=== PATIENT | male | born 1955 | race Caucasian/White ===

== ENCOUNTER 2019-06-27 07:14 | Emergency (ER) | payer BC, OTHER ==
--- OUTSIDE RECORDS SUMMARY | 2019-06-27 07:26 | XMS REPORT | Continuity of Care Document ---
:1955 External Reference #:[id number] Author Name Tiffanie Joiner O.D. Address [address] [place] [id number] Care Team Providers Name Role Phone Alex Bates M.D. - Endocrinology, Care Team Information Measurement Operator [phone] Diabetes & Metabolism Problems Active Problems Provider Date Type 2 diabetes mellitus Onset: Combined form of senile cataract Marlene Graham O.D. Onset: 07/01/2015 Tear film insufficiency Marlene Graham O.D. Onset: 07/01/2015 Myopia Marlene Graham O.D. Onset: 07/01/2015 Regular astigmatism Marlene Graham O.D. Onset: 07/01/2015 Presbyopia Marlene Graham O.D. Onset: 07/01/2015 Ocular hypertension Marlene Graham O.D. Onset: 07/01/2015 Open-angle glaucoma - borderline Tiffanie Joiner O.D. Onset: 12/21/2017 Open angle with borderline findings, high Tiffanie Joiner O.D. Onset: 2017 risk, bilateral Social History Type Date Description Comments Sex Unknown ETOH Use Occasionally consumes beer Tobacco Use Start: Unknown Patient has never smoked Recreational Drug Use Denies Drug Use Smoking Status Reviewed: 06/23/19 Patient has never smoked Allergies, Adverse Reactions, Alerts Description No Known Drug Allergies Medications Active Medications SIG Qnty Indications Ordering Provider Date Metformin HCL 2 Tablets 2 times Unknown 500mg per day Tablets Vitamin B-12 1 tablet every Unknown 500mcg other day Tablets Sub Aspirin 81 1 tablet 1 time Unknown 81mg Tablets per day DR Kamara Description No Information Available Vital Signs Description No Information Available Results Description No Information Available Procedures Description No Information Available Medical Devices Description No Information Available Encounters Description No Information Available Assessments Date Code Description Provider 06/23/2019 H40.023 Open angle with borderline findings, high Tiffanie Joiner O.D. risk, bilateral 06/23/2019 E11.9 Type 2 diabetes mellitus without Tiffanie Joiner O.D. complications Plan of Treatment 06/23/2019 - Tiffanie Joiner O.D.H40.023 Open angle with borderline findings, high risk, bilateralComments:Smoking can increase the risk of developing or worsening any eye related disease, as well as affect your overall health. If you are a smoker, we strongly recommend that you quit.If you are not a smoker, we strongly recommend that you do not start. Dr. Joiner is considering you a Glaucoma suspect. This means the eye pressure in your eyes are higher than average, your optic nerve appearance is suspicious, or you have strong risk factors; but you have not been diagnosed with Glaucoma. Follow up appointments are very important to keep.Follow up:6 MONTHS IOP CHECK/VF 24-2E11.9 Type 2 diabetes mellitus without complicationsComments:You have diabetes. I do not detect any changes in both of your retinas from diabetes at this time. Proper control of your diabetes is important for the health of your eyes. Changes in your eyes from diabetes can happen without symptoms, so it is important that you have your eyes examined. Functional Status Description No Information Available Mental Status Description No Information Available Referrals Description No Information Available
[2019-06-27 07:31] VITALS: BP 134/78
--- NOTE | 2019-06-27 08:24 | UC ---
Throat Pain/Nasal Severo HPI - HPI Summary HPI Summary: 63-year-old male comes in with a chief complaint of upper respiratory tract infection symptoms and left ear pain. He's had upper respiratory tract infection symptoms for about 4 days. He initially developed some right ear pain which then cleared and then the left ear started hurting and that's units hurting now. Did take some [id number] pain medicines which do help with the symptoms. Minimal sore throat no chest congestion. - History of Current Complaint Chief Complaint: UCEar Stated Complaint: LEFT EAR COMPLAINT Time Seen by Provider: 06/27/19 08:15 Pain Intensity: 1 - Allergies/Home Medications Allergies/Adverse Reactions: Allergies Allergy/AdvReac Type Severity Reaction Status Date / Time No Known Allergies Allergy Verified 06/27/19 07:27 Home Medications: Home Medications Acetaminophen [Tylenol Extra Strength] 1 tab PO ONCE 06/27/19 [History Confirmed 06/27/19] PMH/Surg Hx/FS Hx/Imm Hx Previously Healthy: Yes Endocrine History: Diabetes - Surgical History Surgical History: None - Family History Known Family History: Positive: Non-Contributory - Social History Alcohol Use: Occasionally Substance Use Type: None Smoking Status (MU): Never Smoked Tobacco Review of Systems All Other Systems Reviewed And Are Negative: Yes Constitutional: Positive: Other - see hpi Skin: Positive: Negative Eyes: Positive: Negative ENT: Positive: Sore Throat, Ear Ache, Nasal Discharge, Sinus Congestion Respiratory: Positive: Negative Cardiovascular: Positive: Negative Gastrointestinal: Positive: Negative Motor: Positive: Negative Neurovascular: Positive: Negative Musculoskeletal: Positive: Negative Neurological: Positive: Negative Psychological: Positive: Negative Is Patient Immunocompromised?: No Physical Exam Triage Information Reviewed: Yes Appearance: Well-Appearing, No Pain Distress, Well-Nourished Vital Signs: Initial Vital Signs Temp 97 F 06/27/19 07:29 Pulse 68 06/27/19 07:29 Resp 16 06/27/19 07:29 BP 134/78 06/27/19 07:29 Pulse Ox 100 06/27/19 07:29 Vital Signs Reviewed: Yes Eye Exam: Normal Eyes: Positive: Conjunctiva Clear ENT: Positive: Pharyngeal erythema, Nasal congestion, TM bulging - left, TM red - left Neck: Positive: Supple Respiratory: Positive: Lungs clear, Normal breath sounds, No respiratory distress Cardiovascular: Positive: RRR Musculoskeletal: Positive: Strength Intact, ROM Intact Neurological: Positive: Alert, Muscle Tone Normal Psychological: Positive: Age Appropriate Behavior Skin Exam: Normal Throat Pain/Nasal Course/Dx - Differential Dx/Diagnosis Provider Diagnosis: Left otitis media Discharge ED - Sign-Out/Discharge Documenting (check all that apply): Patient Departure All imaging exams completed and their final reports reviewed: No Studies - Discharge Plan Condition: Stable Disposition: HOME Prescriptions: Amoxicillin PO (*) [Amoxicillin 875 MG (*)] 875 mg PO BID #20 tab Patient Education Materials: Ear Infection (ED) Referrals: Alex Bates MD [Primary Care Provider] - Additional Instructions: FOLLOW UP WITH YOUR DOCTOR IF NOT COMPLETELY IMPROVED. GET REEVALUATED SOONER IF NOT IMPROVING OR WORSE OR ANY QUESTIONS OR CONCERNS. - Billing Disposition and Condition Condition: STABLE Disposition: Home
== END 2019-06-27 08:28 | disposition home or self-care (01) ==
LOC: UCCORT 07:14
DX: H66.92 Otitis media, unspecified, left ear (principal); J02.9 Acute pharyngitis, unspecified; J34.89 Other specified disorders of nose and nasal sinuses; E11.9 Type 2 diabetes mellitus without complications
CPT/HCPCS: 99212; G0463

== ENCOUNTER 2019-07-09 13:03 | Emergency (ER) | payer BC, OTHER ==
[2019-07-09 13:27] VITALS: BP 133/83
--- NOTE | 2019-07-09 13:49 | UC ---
Ear Complaint HPI - HPI Summary HPI Summary: 63-year-old male comes with a chief complaint of bilateral ears feeling clogged and discomfort. Left ear is worse in the right. Patient denies amoxicillin starting on June 27, 2019 for a left otitis media. There was some improvement however he still has pressure in the ears worse on the left than the right. No fevers. Has not tried any decongestants. - History of Current Complaint Chief Complaint: UCEar Stated Complaint: EARS CONGESTION RECHECK Time Seen by Provider: 07/09/19 13:33 Pain Intensity: 0 - Allergies/Home Medications Allergies/Adverse Reactions: Allergies Allergy/AdvReac Type Severity Reaction Status Date / Time No Known Allergies Allergy Verified 07/09/19 13:25 PMH/Surg Hx/FS Hx/Imm Hx Previously Healthy: Yes Endocrine History: Diabetes - Surgical History Surgical History: None - Family History Known Family History: Positive: Non-Contributory - Social History Alcohol Use: Occasionally Substance Use Type: None Smoking Status (MU): Never Smoked Tobacco Review of Systems All Other Systems Reviewed And Are Negative: Yes Constitutional: Positive: Negative Skin: Positive: Negative Eyes: Positive: Negative ENT: Positive: Ear Ache Respiratory: Positive: Negative Cardiovascular: Positive: Negative Gastrointestinal: Positive: Negative Motor: Positive: Negative Neurovascular: Positive: Negative Musculoskeletal: Positive: Negative Neurological: Positive: Negative Psychological: Positive: Negative Is Patient Immunocompromised?: No Physical Exam Triage Information Reviewed: Yes Appearance: Well-Appearing, No Pain Distress, Well-Nourished Vital Signs: Initial Vital Signs Temp 98.0 F 07/09/19 13:26 Pulse 71 07/09/19 13:26 Resp 16 07/09/19 13:26 BP 133/83 07/09/19 13:26 Pulse Ox 99 07/09/19 13:26 Vital Signs Reviewed: Yes Eye Exam: Normal Eyes: Positive: Conjunctiva Clear ENT: Positive: TM bulging - Both TMs are shape and then appear to have clear fluid behind them. The left TM does have some erythema. Both ear canals are partially obscured by cerumen. No tenderness to palpation of the tragi. Neck: Positive: Supple Respiratory: Positive: Lungs clear, Normal breath sounds, No respiratory distress Cardiovascular: Positive: RRR Musculoskeletal: Positive: Strength Intact, ROM Intact Neurological: Positive: Alert, Muscle Tone Normal Psychological: Positive: Age Appropriate Behavior Skin Exam: Normal Ear Complaint Course/Dx - Course Course Of Treatment: Patient will treat [id number] Sudafed for 2 days to see if it will allow his ears to drain and get rid of his symptoms. There is earwax in both canals and I prescribed ofloxacin to treat for any potential otitis externa causing some of the symptoms. If his symptoms do not clear after the Sudafed I recommended starting Augmentin. If his symptoms do not resolve completely he should follow up with ear nose throat. Patient prefers to stay here in [place] and follow-up with a [place]-based ENT therefore I gave him [facility] and also Dr. Brown's office numbers for follow-up. - Differential Dx/Diagnosis Provider Diagnosis: Serous otitis media, Cerumen in auditory canal on examination Discharge ED - Sign-Out/Discharge Documenting (check all that apply): Patient Departure All imaging exams completed and their final reports reviewed: No Studies - Discharge Plan Condition: Stable Disposition: HOME Prescriptions: Amoxicillin/Clavulanate TAB* [Augmentin TAB 875*] 875 mg PO BID #20 tab Ofloxacin 0.3% (Ear Drop)* [Floxin 0.3% OTIC.KESHAWN (Ear Drop)] 5 drop BOTH EARS BID #1 btl Patient Education Materials: Serous Otitis Media (ED) Referrals: Alex Bates MD [Primary Care Provider] - Martin Driver MD [Medical Doctor] - Mian Ji MD [Medical Doctor] - Kale Brown MD [Medical Doctor] - Additional Instructions: FOLLOW UP WITH ENT IF NOT COMPLETELY IMPROVED. Use the antibiotic eardrops as directed in both ears for 7 days. Use an [id number] decongestant such as Sudafed for 2 days to see if that helps with symptoms. If symptoms completely resolve after the use of the decongestant there is no need for further antibiotics. However if symptoms are not improved start the antibiotic Augmentin as directed. If not completely improved or worse follow up with ENT. GET REEVALUATED SOONER IF NOT IMPROVING OR WORSE OR ANY QUESTIONS OR CONCERNS. - Billing Disposition and Condition Condition: STABLE Disposition: Home
== END 2019-07-09 13:53 | disposition home or self-care (01) ==
LOC: UCCORT 13:03
DX: H65.93 Unspecified nonsuppurative otitis media, bilateral (principal); H61.23 Impacted cerumen, bilateral; E11.9 Type 2 diabetes mellitus without complications
CPT/HCPCS: 99212; G0463